=== PATIENT | male | born 1985 | race Hispanic/Latino ===

== ENCOUNTER 2018-07-27 18:52 | Emergency (ER) | payer OTHER, BC ==
[2018-07-27 19:06] VITALS: BMI 33.9
[2018-07-27 19:14] VITALS: TEMP 98.2
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
[2018-07-27 22:20] VITALS: BP 116/72; PULSE 88; RESP 14; O2SAT 100
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
== END 2018-07-27 22:19 | disposition home or self-care (01) ==
LOC: ED 18:52
DX: S09.90XA Unspecified injury of head, initial encounter (principal); S16.1XXA Strain of muscle, fascia and tendon at neck level, initial encounter; S39.012A Strain of muscle, fascia and tendon of lower back, initial encounter; V49.9XXA Car occupant (driver) (passenger) injured in unspecified traffic accident, initial encounter